=== PATIENT | male | born 1980 | race Two or more races ===

== ENCOUNTER 2019-03-12 03:23 | Inpatient (IN) | payer MEDICAID ==
[~2019-03-12] VITALS: Ht 182.9 cm; Wt 106.8 kg
[2019-03-12] MEDS ORDERED: METF-960 PO (03:43)
[2019-03-12] MEDS ORDERED: HYDR25TA PO (03:43)
[2019-03-12] MEDS ORDERED: METO25 PO (03:43)
[2019-03-12] MEDS ORDERED: LISI-662 PO (03:43)
[2019-03-12] MEDS ORDERED: CloNIDine HCL 0.2 MG TABLET PO ONE (03:45)
[2019-03-12 03:53] LABS: GLUCOSE,POINT OF CARE 251 MG/DL (70-110)
[2019-03-12 03:54] LABS: BASOPHILS % (AUTO) 0.7 % (0.0-2.0); HEMATOCRIT 48.7 % (41-53); HEMOGLOBIN 16.5 g/dL (13.5-17.5); LYMPHOCYTES # (AUTO) 3.3 K/uL (1.0-4.8); LYMPHOCYTES % (AUTO) 40.2 % (22.0-44.0); MEAN CORPUSCULAR HEMOGLOBIN 29.3 pg (26.0-34.0); MEAN CORPUSCULAR HGB CONC 33.9 G/dL (31.0-37.0); MEAN CORPUSCULAR VOLUME 87 fL (80-100); MONOCYTES # (AUTO) 0.7 K/uL (0.1-1.0); MONOCYTES % (AUTO) 8.1 % (2.0-9.0); NEUTROPHILS # (AUTO) 3.8 K/uL (1.8-7.7); PLATELET COUNT (AUTO) 225 K/uL (150-450); RED BLOOD CELL COUNT(AUTO) 5.63 MIL/uL (4.50-5.90); RED CELL DISTRIBUTION WIDTH 14.2 % (11.5-14.5)
[2019-03-12] MEDS ORDERED: HydrALAZINE HCL 20 MG/ML VIAL IVP ONE (04:00)
[2019-03-12 04:01] LABS: ANION GAP 10 mmol/L (8-16); CALCIUM, TOTAL 9.5 mg/dL (8.8-10.5); CARBON DIOXIDE 29 mmol/L (22-29); CHLORIDE 97 mmol/L (98-107); CREATININE 1.02 mg/dL (0.60-1.30); GLOMERULAR FILTR. RATE CALC > 60 mL/min (>60); GLUCOSE,RANDOM 239 mg/dL (70-110); POTASSIUM 3.5 mmol/L (3.5-5.1); SODIUM SERUM 136 mmol/L (136-145); UREA NITROGEN, BLOOD 17 mg/dL (7-18)
[2019-03-12 04:04] LABS: PROTHROMBIN TIME 10.4 SEC (9.4-11.6)
[2019-03-12] MEDS ORDERED: IOVERSOL 350 MG/ML 100 ML VIAL ONE (04:05)
[2019-03-12] MEDS ORDERED: SODIUM CHLORIDE 0.9% 100 ML ONE (04:05)
[2019-03-12 04:07] LABS: ALANINE AMINOTRANSFERASE 46 U/L (12-78); ALKALINE PHOSPHATASE 101 U/L (46-116); ASPARTATE AMINOTRANSFERASE 17 U/L (15-37); BILIRUBIN,TOTAL 0.6 mg/dL (0.1-1.0); TOTAL PROTEIN, SERUM 7.8 g/dL (6.4-8.2)
[2019-03-12] MEDS ORDERED: NiCARDipine HCL 25 MG in DEXTROSE 5%-WATER 240 ML IV PRN (04:30)
[2019-03-12 05:21] LABS: APPEARANCE,URINE CLEAR (CLEAR); BILIRUBIN,URINE NEGATIVE (NEGATIVE); GLUCOSE, URINE (UA) >=1000 mg/dL (NEGATIVE); KETONES,URINE NEGATIVE (NEGATIVE); LEUKOCYTE ESTERASE ,URINE NEGATIVE (NEGATIVE); NITRATE,URINE NEGATIVE (NEGATIVE); OCCULT BLOOD,URINE NEGATIVE (NEGATIVE); PH,URINE 6.5 (5.0-8.0); PROTEIN,URINE NEGATIVE (NEGATIVE); UROBILINOGEN,URINE 0.2 mg/dL (<=1.0)
[2019-03-12 05:27] LABS: AMPHET/METH SCREEN,URINE NEGATIVE (NEGATIVE); BARBITURATE SCREEN, URINE NEGATIVE (NEGATIVE); BENZODIAZEPINES SCREEN,URINE NEGATIVE (NEGATIVE); CANNABINOID SCREEN,URINE NEGATIVE (NEGATIVE); COCAINE SCREEN,URINE NEGATIVE (NEGATIVE); METHADONE SCREEN, URINE NEGATIVE (NEGATIVE); OPIATE SCREEN,URINE NEGATIVE (NEGATIVE)
[2019-03-12 05:31] LABS: PHENCYCLIDINE SCREEN,URINE NEGATIVE (NEGATIVE)
[2019-03-12 05:33] LABS: BACTERIA,URINE None Seen /HPF (None Seen); RBC,URINE 0-2 /HPF (0-2); SQUAMOUS EPITHELIAL CELL,UR None Seen /LPF (None Seen); WBC,URINE 0-2 /HPF (0-5)
[2019-03-12 08:52] VITALS: BP 152/103
[2019-03-12] MEDS ORDERED: DEXTROSE 50%-WATER 25 GM/50 ML SYRINGE IVP PRN (10:00)
[2019-03-12] MEDS ORDERED: ACETAMINOPHEN 325 MG TABLET PO PRN (10:15)
[2019-03-12] MEDS ORDERED: MAGNESIUM HYDROXIDE SUSPENSION 30 ML UDCUP PO PRN (10:15)
[2019-03-12] MEDS: ATORVASTATIN CALCIUM 20 MG TABLET PO SCH (10:28)
[2019-03-12] MEDS: METOPROLOL TARTRATE 25 MG TABLET PO SCH ×2 (10:28→21:25)
[2019-03-12] MEDS: LISINOPRIL 20 MG TABLET PO SCH (10:29)
[2019-03-12] MEDS: ASPIRIN 81 MG CHEWABLE TABLET PO SCH (10:29)
[2019-03-12 11:33] VITALS: BP 149/118
[2019-03-12] MEDS ORDERED: INFLUENZA VIRUS VACCINE QVS 2019-20 (3YR+)/PF 60 MCG/0.5 ML SYRINGE IM ONE (12:00)
[2019-03-12] MEDS: INSULIN LISPRO 100 UNITS/ML SQ PRN ×3 (12:30→21:58)
[2019-03-12] MEDS ORDERED: ASPIRIN 81 MG CHEWABLE TABLET PO ONE (14:00)
[2019-03-12] MEDS: HEPARIN SODIUM,PORCINE 5,000 UNITS/ML VIAL SQ SCH ×2 (15:18→23:31)
[2019-03-12 15:47] VITALS: BP 154/101
[2019-03-12 17:01] LABS: HEMOGLOBIN A1C 9.8 % (4.5-6.2)
[2019-03-12 17:15] LABS: THYROID STIMULATING HORMONE 0.98 uIU/mL (0.36-3.74)
[2019-03-12] MEDS: MetFORMIN HCL 500 MG TABLET PO SCH (18:31)
[2019-03-12 18:32] LABS: GLUCOMETER DEV NAME(LOC) 5N.2; GLUCOSE,POINT OF CARE 222 MG/DL (70-110)
[2019-03-12 20:16] VITALS: BP 144/97
[2019-03-12 20:27] LABS: GLUCOMETER DEV NAME(LOC) 5S.1; GLUCOSE,POINT OF CARE 250 MG/DL (70-110)
[2019-03-12] MEDS: DOCUSATE SODIUM 100 MG CAPSULE PO SCH (21:25)
[2019-03-12 22:29] LABS: GLUCOMETER DEV NAME(LOC) 5S.1; GLUCOSE,POINT OF CARE 212 MG/DL (70-110)
[2019-03-12 23:34] VITALS: BP 148/100
[2019-03-13 04:29] VITALS: BP 144/95
[2019-03-13] MEDS: INSULIN LISPRO 100 UNITS/ML SQ PRN ×4 (06:40→23:37)
[2019-03-13 07:05] LABS: CHOL/HDL RATIO 4.7 (4.2-7.3)
[2019-03-13 07:26] VITALS: BP 141/96
[2019-03-13] MEDS: DOCUSATE SODIUM 100 MG CAPSULE PO SCH ×2 (08:43→21:00)
[2019-03-13] MEDS: HEPARIN SODIUM,PORCINE 5,000 UNITS/ML VIAL SQ SCH ×3 (08:43→23:43)
[2019-03-13] MEDS: LISINOPRIL 20 MG TABLET PO SCH (08:43)
[2019-03-13] MEDS: MetFORMIN HCL 500 MG TABLET PO SCH (08:43)
[2019-03-13] MEDS: FAMOTIDINE 20 MG TABLET PO SCH (08:43)
[2019-03-13] MEDS: ATORVASTATIN CALCIUM 20 MG TABLET PO SCH (08:43)
[2019-03-13] MEDS: ASPIRIN 81 MG CHEWABLE TABLET PO SCH (08:44)
[2019-03-13] MEDS: METOPROLOL TARTRATE 25 MG TABLET PO SCH ×2 (08:44→21:52)
[2019-03-13 11:49] VITALS: BP 140/100
[2019-03-13 12:11] LABS: GLUCOMETER DEV NAME(LOC) 5N.2; GLUCOSE,POINT OF CARE 220 MG/DL (70-110)
[2019-03-13 12:11] LABS: GLUCOMETER DEV NAME(LOC) 5N.2; GLUCOSE,POINT OF CARE 269 MG/DL (70-110)
[2019-03-13 15:42] VITALS: BP 153/95
[2019-03-13 17:21] LABS: GLUCOMETER DEV NAME(LOC) 5N.1; GLUCOSE,POINT OF CARE 229 MG/DL (70-110)
[2019-03-13] MEDS: MetFORMIN HCL 850 MG TABLET PO SCH (18:17)
[2019-03-13 19:36] VITALS: BP 142/94
[2019-03-13 23:40] VITALS: BP 152/101
[2019-03-14 05:15] VITALS: BP 139/94
[2019-03-14] MEDS: INSULIN LISPRO 100 UNITS/ML SQ PRN ×4 (06:30→21:08)
[2019-03-14 07:26] VITALS: BP 141/91
[2019-03-14 08:04] LABS: GLUCOMETER DEV NAME(LOC) 5N.2; GLUCOSE,POINT OF CARE 276 MG/DL (70-110)
[2019-03-14 08:04] LABS: GLUCOMETER DEV NAME(LOC) 5N.2; GLUCOSE,POINT OF CARE 190 MG/DL (70-110)
[2019-03-14] MEDS: HEPARIN SODIUM,PORCINE 5,000 UNITS/ML VIAL SQ SCH ×2 (08:52→16:30)
[2019-03-14] MEDS: DOCUSATE SODIUM 100 MG CAPSULE PO SCH ×2 (08:52→21:00)
[2019-03-14] MEDS: FAMOTIDINE 20 MG TABLET PO SCH (08:52)
[2019-03-14] MEDS: ATORVASTATIN CALCIUM 20 MG TABLET PO SCH (08:53)
[2019-03-14] MEDS: METOPROLOL TARTRATE 25 MG TABLET PO SCH ×2 (08:53→21:07)
[2019-03-14] MEDS: LISINOPRIL 20 MG TABLET PO SCH (08:53)
[2019-03-14] MEDS: ASPIRIN 81 MG CHEWABLE TABLET PO SCH (08:53)
[2019-03-14] MEDS: MetFORMIN HCL 850 MG TABLET PO SCH ×2 (08:53→17:45)
[2019-03-14 12:18] VITALS: BP 150/100
[2019-03-14 16:23] VITALS: BP 154/89
[2019-03-14 19:02] LABS: GLUCOMETER DEV NAME(LOC) 5N.2; GLUCOSE,POINT OF CARE 203 MG/DL (70-110)
[2019-03-14 19:35] VITALS: BP 154/85
[2019-03-14] MEDS ORDERED: METOPROLOL TARTRATE 50 MG TABLET PO SCH (21:00)
[2019-03-14 22:21] LABS: GLUCOMETER DEV NAME(LOC) 5N.2; GLUCOSE,POINT OF CARE 197 MG/DL (70-110)
[2019-03-14 22:21] LABS: GLUCOMETER DEV NAME(LOC) 5N.1; GLUCOSE,POINT OF CARE 237 MG/DL (70-110)
[2019-03-15] VITALS (9 sets, daily range): BP systolic 139–166; BP diastolic 76–107
[2019-03-15] MEDS: HEPARIN SODIUM,PORCINE 5,000 UNITS/ML VIAL SQ SCH ×4 (00:24→23:41)
[2019-03-15] MEDS: INSULIN LISPRO 100 UNITS/ML SQ PRN ×3 (07:10→20:16)
[2019-03-15] MEDS: MetFORMIN HCL 850 MG TABLET PO SCH ×2 (08:57→18:06)
[2019-03-15] MEDS: ASPIRIN 81 MG CHEWABLE TABLET PO SCH (08:58)
[2019-03-15] MEDS: ATORVASTATIN CALCIUM 20 MG TABLET PO SCH (08:58)
[2019-03-15] MEDS: DOCUSATE SODIUM 100 MG CAPSULE PO SCH ×2 (08:58→20:19)
[2019-03-15] MEDS: LISINOPRIL 20 MG TABLET PO SCH (08:59)
[2019-03-15] MEDS: METOPROLOL TARTRATE 25 MG TABLET PO SCH ×2 (08:59→20:15)
[2019-03-15] MEDS: FAMOTIDINE 20 MG TABLET PO SCH (09:01)
[2019-03-15 12:34] LABS: GLUCOMETER DEV NAME(LOC) 5N.2; GLUCOSE,POINT OF CARE 214 MG/DL (70-110)
[2019-03-15 12:34] LABS: GLUCOMETER DEV NAME(LOC) 5N.2; GLUCOSE,POINT OF CARE 182 MG/DL (70-110)
[2019-03-15] MEDS ORDERED: NIFEdipine 30 MG ER TABLET PO ONE (15:45)
[2019-03-15 15:53] LABS: BASOPHILS % (AUTO) 0.5 % (0.0-2.0); EOSINOPHILS % (AUTO) 3.8 % (1.0-6.0); HEMATOCRIT 45.7 % (41-53); HEMOGLOBIN 15.4 g/dL (13.5-17.5); LYMPHOCYTES # (AUTO) 2.8 K/uL (1.0-4.8); LYMPHOCYTES % (AUTO) 41.8 % (22.0-44.0); MEAN CORPUSCULAR HEMOGLOBIN 28.9 pg (26.0-34.0); MEAN CORPUSCULAR HGB CONC 33.7 G/dL (31.0-37.0); MEAN CORPUSCULAR VOLUME 86 fL (80-100); MONOCYTES # (AUTO) 0.4 K/uL (0.1-1.0); MONOCYTES % (AUTO) 6.3 % (2.0-9.0); NEUTROPHILS # (AUTO) 3.2 K/uL (1.8-7.7); NEUTROPHILS % (AUTO) 47.6 % (40.0-70.0); PLATELET COUNT (AUTO) 197 K/uL (150-450); RED BLOOD CELL COUNT(AUTO) 5.34 MIL/uL (4.50-5.90); RED CELL DISTRIBUTION WIDTH 14.1 % (11.5-14.5)
[2019-03-15 16:01] LABS: ANION GAP 6 mmol/L (8-16); CALCIUM, TOTAL 8.4 mg/dL (8.8-10.5); CARBON DIOXIDE 29 mmol/L (22-29); CHLORIDE 101 mmol/L (98-107); CREATININE 0.92 mg/dL (0.60-1.30); GLOMERULAR FILTR. RATE CALC > 60 mL/min (>60); GLUCOSE,RANDOM 177 mg/dL (70-110); POTASSIUM 4.3 mmol/L (3.5-5.1); SODIUM SERUM 136 mmol/L (136-145); UREA NITROGEN, BLOOD 12 mg/dL (7-18)
[2019-03-15 16:06] LABS: ALANINE AMINOTRANSFERASE 67 U/L (12-78); ALBUMIN 3.4 g/dL (3.4-5.0); ALKALINE PHOSPHATASE 78 U/L (46-116); ASPARTATE AMINOTRANSFERASE 30 U/L (15-37); BILIRUBIN,TOTAL 0.5 mg/dL (0.1-1.0); TOTAL PROTEIN, SERUM 7.1 g/dL (6.4-8.2)
[2019-03-15] MEDS ORDERED: NIFEdipine 60 MG ER TABLET PO ONE (20:00)
[2019-03-16 01:59] LABS: GLUCOMETER DEV NAME(LOC) 5N.1; GLUCOSE,POINT OF CARE 139 MG/DL (70-110)
[2019-03-16 01:59] LABS: GLUCOMETER DEV NAME(LOC) 5N.1; GLUCOSE,POINT OF CARE 221 MG/DL (70-110)
[2019-03-16 04:27] VITALS: BP 118/75
[2019-03-16] MEDS: INSULIN LISPRO 100 UNITS/ML SQ PRN ×2 (06:43→13:16)
[2019-03-16 06:57] LABS: GLUCOMETER DEV NAME(LOC) 5N.1; GLUCOSE,POINT OF CARE 174 MG/DL (70-110)
[2019-03-16 07:00] LABS: BASOPHILS % (AUTO) 0.7 % (0.0-2.0); EOSINOPHILS % (AUTO) 3.6 % (1.0-6.0); HEMATOCRIT 44.4 % (41-53); HEMOGLOBIN 15.2 g/dL (13.5-17.5); LYMPHOCYTES # (AUTO) 3.1 K/uL (1.0-4.8); LYMPHOCYTES % (AUTO) 42.1 % (22.0-44.0); MEAN CORPUSCULAR HEMOGLOBIN 29.6 pg (26.0-34.0); MEAN CORPUSCULAR HGB CONC 34.2 G/dL (31.0-37.0); MEAN CORPUSCULAR VOLUME 87 fL (80-100); MONOCYTES # (AUTO) 0.5 K/uL (0.1-1.0); MONOCYTES % (AUTO) 6.6 % (2.0-9.0); NEUTROPHILS # (AUTO) 3.5 K/uL (1.8-7.7); PLATELET COUNT (AUTO) 199 K/uL (150-450); RED BLOOD CELL COUNT(AUTO) 5.13 MIL/uL (4.50-5.90); RED CELL DISTRIBUTION WIDTH 13.9 % (11.5-14.5)
[2019-03-16 07:21] LABS: ALANINE AMINOTRANSFERASE 97 U/L (12-78); ALBUMIN 3.3 g/dL (3.4-5.0); ALKALINE PHOSPHATASE 72 U/L (46-116); ANION GAP 7 mmol/L (8-16); ASPARTATE AMINOTRANSFERASE 47 U/L (15-37); BILIRUBIN,TOTAL 0.5 mg/dL (0.1-1.0); CALCIUM, TOTAL 8.2 mg/dL (8.8-10.5); CARBON DIOXIDE 28 mmol/L (22-29); CHLORIDE 102 mmol/L (98-107); CREATININE 0.81 mg/dL (0.60-1.30); GLOMERULAR FILTR. RATE CALC > 60 mL/min (>60); GLUCOSE,RANDOM 183 mg/dL (70-110); POTASSIUM 3.9 mmol/L (3.5-5.1); SODIUM SERUM 137 mmol/L (136-145); TOTAL PROTEIN, SERUM 6.9 g/dL (6.4-8.2); UREA NITROGEN, BLOOD 14 mg/dL (7-18)
[2019-03-16] MEDS ORDERED: NIFEdipine 30 MG ER TABLET PO SCH ×2 (09:00)
[2019-03-16] MEDS ORDERED: LISINOPRIL 20 MG TABLET PO SCH (09:00)
[2019-03-16 09:18] VITALS: BP 143/77
[2019-03-16] MEDS: DOCUSATE SODIUM 100 MG CAPSULE PO SCH (09:35)
[2019-03-16] MEDS: ASPIRIN 81 MG CHEWABLE TABLET PO SCH (09:35)
[2019-03-16] MEDS: METOPROLOL TARTRATE 25 MG TABLET PO SCH (09:35)
[2019-03-16] MEDS: HEPARIN SODIUM,PORCINE 5,000 UNITS/ML VIAL SQ SCH (09:35)
[2019-03-16] MEDS: MetFORMIN HCL 850 MG TABLET PO SCH (09:35)
[2019-03-16] MEDS: FAMOTIDINE 20 MG TABLET PO SCH (09:35)
[2019-03-16] MEDS: ATORVASTATIN CALCIUM 20 MG TABLET PO SCH (09:47)
[2019-03-16 11:53] VITALS: BP 150/107
[2019-03-16] MEDS ORDERED: HYDROCHLOROTHIAZIDE 25 MG TABLET PO ONE (12:15)
[2019-03-16 12:35] LABS: GLUCOMETER DEV NAME(LOC) 5N.2; GLUCOSE,POINT OF CARE 158 MG/DL (70-110)
[2019-03-16] MEDS ORDERED: ATOR20TA86 PO (13:27)
[2019-03-16] MEDS ORDERED: ASPI81TA39 PO (13:27)
[2019-03-16] MEDS ORDERED: APIX5TAB PO (13:28)
[2019-03-16] MEDS ORDERED: NIFE60TA71 PO (13:32)
[2019-03-16] MEDS ORDERED: HYDR25TA PO (13:42)
[2019-03-16] MEDS ORDERED: METF-446 PO (13:43)
[2019-03-17] MEDS ORDERED: HYDROCHLOROTHIAZIDE 25 MG TABLET PO SCH (12:00)
== END 2019-03-16 14:23 | disposition home or self-care (01) | DRG 45 ==
LOC: EMS 03:23 → 5N 07:00
PROVIDERS: ADMIT Hospitalist; ATTEND Hospitalist
DX: I63.9 Cerebral infarction, unspecified (principal); E11.9 Type 2 diabetes mellitus without complications; I10 Essential (primary) hypertension; E66.9 Obesity, unspecified; Z28.21 Immunization not carried out because of patient refusal; Z82.49 Family history of ischemic heart disease and other diseases of the circulatory system; Z83.3 Family history of diabetes mellitus; Z68.31 Body mass index [BMI] 31.0-31.9, adult
CPT/HCPCS: 70496; 70498; 70551; 83036; 84443; 90686; 92523; 93005; 93306; 97116; 97161; 97165; 97530; 97535; J0360; J1644; J3490; J7050; J7060